=== PATIENT | male | born 1990 | race Caucasian/White ===

== ENCOUNTER 2023-11-26 19:11 | Emergency (ER) | payer OTHER ==
[~2023-11-26] VITALS: Ht 177.8 cm; Wt 102.1 kg
[2023-11-26 19:31] VITALS: BP_SYST 122; PULSE 75; RESP 16; TEMP 98; O2SAT 97
[2023-11-26 21:26] LABS: BASOPHILS % (AUTO) 0.2 % (0.0-2.0); EOSINOPHILS % (AUTO) 0.4 % (0.0-4.0); HEMATOCRIT 40.9 % (36-54); HEMOGLOBIN 14.2 g/dL (14.0-18.0); LYMPHOCYTES # (AUTO) 2.1 K/uL (1.0-5.5); LYMPHOCYTES % (AUTO) 43.1 % (20.5-51.5); MEAN CORPUSCULAR HEMOGLOBIN 30 pg (27-31); MEAN CORPUSCULAR HGB CONC 35 % (32-36); MEAN CORPUSCULAR VOLUME 87 fL (79.0-98.0); MONOCYTES # (AUTO) 0.5 K/uL (0.0-1.0); MONOCYTES % (AUTO) 10.1 % (1.7-9.3); NEUTROPHILS # (AUTO) 2.3 K/uL (1.8-7.7); NEUTROPHILS % (AUTO) 46.2 % (40.0-70.0); PLATELET COUNT (AUTO) 230 K/uL (130-430); RED BLOOD CELL COUNT(AUTO) 4.68 MIL/uL (4.2-6.2); RED CELL DISTRIBUTION WIDTH 12.8 % (9.0-15.0)
[2023-11-26 21:28] LABS: ANION GAP 9 (5-15); CALCIUM 8.1 mg/dL (8.4-11.0); CARBON DIOXIDE 28 mmol/L (23-29); CHLORIDE 104 mmol/L (98-107); CREATININE 0.76 mg/dL (0.55-1.30); GFR AFRICAN AMERICAN 151 mL/min (>90); GFR NON AFRICAN-AMERICAN 125 mL/min (>90); GLUCOSE 107 mg/dL (74-106); POTASSIUM 3.6 mmol/L (3.5-5.1); SODIUM SERUM 141 mmol/L (136-145); UREA NITROGEN, BLOOD 15 mg/dL (8-21)
[2023-11-26] MEDS: IBUPROFEN 600 MG TABLET PO ONE (22:42)
[2023-11-26] MEDS: ACETAMINOPHEN 500 MG TABLET PO ONE (22:42)
[2023-11-26 23:00] VITALS: BP_SYST 122; PULSE 75; RESP 16; TEMP 98; O2SAT 97
== END 2023-11-26 23:00 | disposition home or self-care (01) ==
LOC: SED 19:11
DX: R51.9 Headache, unspecified (principal); R55 Syncope and collapse; R07.89 Other chest pain; R10.9 Unspecified abdominal pain; Z79.899 Other long term (current) drug therapy
CPT/HCPCS: 36415; 70450-TC; 80048; 84484; 85025; 93005; 99284